=== PATIENT | female | born 1955 | race Caucasian/White ===

== ENCOUNTER 2020-02-09 21:27 | Emergency (ER) | payer OTHER ==
--- OUTSIDE RECORDS SUMMARY | 2020-02-09 21:30 | XMS REPORT | Clinical Summary ---
:1955 Author Organization [facility] Address [address] [place] [address] Care Team Providers Name Role Phone Priscilla Tubbs Primary Care Provider Allergies Not on File Medications Not on file Active Problems Not on file Social History Tobacco Use Types Packs/Day Years Used Date Never Assessed Sex Assigned at Date Recorded Not on file Job Start Date Occupation Industry Not on file Not on file Not on file Travel History Travel Start Travel End No recent travel history available. 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
--- OUTSIDE RECORDS SUMMARY | 2020-02-09 21:30 | XMS REPORT | Continuity of Care Document ---
:1955 Author Organization [facility] t Address [address] [place] [address] [address] [place] [address] Care Team Providers Name Role Phone Arley LEW Primary Care Physician Kirill HARRELL S Attending Clinician Problems This patient has no known problems. Allergies, Adverse Reactions, Alerts This patient has no known allergies or adverse reactions. Social History Social Habit Start Date Stop Date Quantity Comments Source Sex Assigned At Rosalioraina sterling Mandaen Medications This patient has no known medications. Procedures This patient has no known procedures. Plan of Care Planned Activity Planned Date Details Comments Source Future Scheduled 2020-02-15 IN[facility]ZA VACCINE [facility] M[facility]en Test 00:00:00 [code = INFLUENZA VACCINE] Future Scheduled 2018 65+ PNEUMOCOCCAL [place] Mandaen Test 00:00:00 VACCINE (1 of 2 - PCV13) [code = 65+ PNEUMOCOCCAL VACCINE (1 of 2 - PCV13)] Future Scheduled 2003-10-04 BREAST CANCER [facility]ist Test 00:00:00 SCREENING [code = BREAST CANCER SCREENING] Future Scheduled 2003-10-04 COLONOSCOPY SCREENING [facility] Mandaen Test 00:00:00 [code = COLONOSCOPY SCREENING] Future Scheduled 2003-10-04 SHINGLES VACCINES (#1) [facility] Mandaen Test 00:00:00 [code = SHINGLES VACCINES (#1)] Encounters Start End Encounter Admission Attending Care Care Encounter Source Date/Time Date/Time Type Type Clinicians Facility Department ID 2019-09-17 2019-09-17 Office RICK Roy [id number] 26 14:44:15 15:22:21 Visit [facility] [id number] Surgical [id number] Specialti [phone] [address] Results This patient has no known results.
--- NOTE | 2020-02-10 00:11 | ER ---
Nurse's Notes [facility] Name: Gin Barksdale Age: 64 yrs Sex: Female : 1955 Arrival Date: 02/09/2020 Time: 21:31 Bed 4 Private MD: Diagnosis: Distal Radial Fracture Presentation: 02/08 21:37 Chief complaint: Patient states: Slipped and fell, landed on L arm. [place] on L forearm ca1 and L wrist. Denies LOC. Denies hitting head. Coronavirus screen: Patient denies a cough. Patient denies shortness of breath or difficulty breathing. Patient denies measured and/or subjective temperature greater than 100.4F prior to today's visit. Patient denies travel on a cruise ship or to a country the [facility] currently lists as an affected area. Patient denies contact with known and/or suspected case of COVID-19. Proceed with normal triage. Ebola Screen: Patient negative for fever greater than or equal to 101.5 degrees Fahrenheit, and additional compatible Ebola Virus Disease symptoms Patient denies exposure to infectious person. Patient denies travel to an Ebola-affected area in the 21 days before illness onset. No symptoms or risks identified at this time. Initial Sepsis Screen: Does the patient meet any 2 criteria? No. Patient's initial sepsis screen is negative. Does the patient have a suspected source of infection? No. Patient's initial sepsis screen is negative. Risk Assessment: Do you want to hurt yourself or someone else? Patient reports no desire to harm self or others. Onset of symptoms was February 09, 2020. 21:37 Method Of Arrival: Wheelchair ca1 21:37 Acuity: ELY 4 ca1 22:28 Care prior to arrival: None. Mechanism of Injury: Fall from standing position. Trauma mg2 event details: Injury occurred in the [facility]. Trauma Activation: Not Applicable Physician: ED Physician; Name: ; Notified At: ; Arrived At: Physician: General Surgeon; Name: ; Notified At: ; Arrived At: Physician: Radiology; Name: ; Notified At: ; Arrived At: Physician: Respiratory; Name: ; Notified At: ; Arrived At: Physician: Lab; Name: ; Notified At: ; Arrived At: Historical: - Allergies: 21:41 No Known Allergies; ca1 - Home Meds: 21:41 levothyroxine 75 mcg oral tab [Active]; ca1 - PMHx: 21:41 Thyroid problem; ca1 - PSHx: 21:41 Cholecystectomy; Gastric Bypass; Tubal ligation; ca1 - Immunization history:: Adult Immunizations up to date. - Social history:: Smoking status: Patient denies any tobacco usage or history of. - Immunization history: Last tetanus immunization: unknown. Screenin:26 Abuse screen: Denies threats or abuse. Denies injuries from another. Nutritional mg2 screening: No deficits noted. Tuberculosis screening: No symptoms or risk factors identified. Fall Risk Fall in past 12 months (25 points). Primary Survey: 22:26 NO uncontrolled hemorrhage observed. mg2 22:26 A: The patient is alert. Airway: patent, No supplemental oxygen in use on arrival. mg2 Breathing/Chest: Respiratory pattern: regular, Respiratory effort: spontaneous, unlabored, Breath sounds: clear, Chest inspection: symmetrical rise and fall of the chest. Circulation: Skin color: pink. Disability Alert. Exposure/Environment: All clothing and personal items were removed. Forensic evidence collection is not deemed to be indicated at this time. Items placed in patient belonging bag. There is no evidence of uncontrolled external bleeding. Obvious injury(ies) are noted at this time: swelling in the left forearm A warming method has been applied: A warm blanket has been provided to the patient. Secondary Survey: 22:27 HEENT: No deficits noted. Gastrointestinal: No deficits noted. : No deficits noted. mg2 Musculoskeletal: Circulation, motion, and sensation intact. Capillary refill < 3 seconds. Assessment: 22:25 General: Appears in no apparent distress. comfortable, Behavior is calm, cooperative. mg2 Pain: Complains of pain in left arm Quality of pain is described as aching, Pain began suddenly, Is intermittent. Neuro: Level of Consciousness is awake, alert, obeys commands, Oriented to person, place, time, situation. Cardiovascular: Capillary refill < 3 seconds Patient's skin is warm and dry. Respiratory: Airway is patent Respiratory effort is even, unlabored, Respiratory pattern is regular, symmetrical. GI: No deficits noted. : No signs and/or symptoms were reported regarding the genitourinary system. EENT: No signs and/or symptoms were reported regarding the EENT system. Derm: Skin is intact, is healthy with good turgor, Skin is pink, warm \T\ dry. normal. Musculoskeletal: Circulation, motion, and sensation intact. Capillary refill < 3 seconds, Swelling present in left arm. Injury Description: swelling in the left arm. Vital Signs: 21:37 BP 136 / 93; Pulse 92; Resp 15 S; Temp 97.3(TE); Pulse Ox 100% on R/A; Weight 86.18 kg ca1 (R); Height 5 ft. 4 in. (162.56 cm) (R); Pain 9/10; 22:36 Pulse 75; Resp 18; Pulse Ox 100% on R/A; mg2 21:37 Body Mass Index 32.61 (86.18 kg, 162.56 cm) ca1 [place] Coma Score: 22:36 Eye Response: spontaneous(4). Verbal Response: oriented(5). Motor Response: obeys mg2 commands(6). Total: 15. Trauma Score (Adult): 22:36 Eye Response: spontaneous(1); Verbal Response: oriented(1); Motor Response: obeys mg2 commands(2); Systolic BP: > 89 mm Hg(4); Respiratory Rate: 10 to 29 per min(4); [place] Score: 15; Trauma Score: 12 ED Course: 21:31 Patient arrived in ED. es 21:39 Triage completed. ca1 21:41 Arm band placed on right wrist. ca1 22:02 Wrist Left (3 View) XRAY In Process Unspecified. EDMS 22:02 Forearm Left XRAY In Process Unspecified. EDMS 22:09 Bernard Rodriguez PA is PHCP. [facility] 22:09 Julian Lucio MD is Attending Physician. [facility] 22:25 Steve Lambert, ASHLEY is Primary Nurse. mg2 22:26 Patient did not have IV access during this emergency room visit. mg2 22:28 Patient has correct armband on for positive identification. mg2 22:29 Patient maintains SpO2 saturation greater than 95% on room air. Thermoregulation: warm mg2 blanket given to patient. 02/09 00:10 James Gamez MD is Referral Physician. [facility] Administered Medications: 02/08 23:22 Drug: [place] 10 mg-325 mg 1 tabs Route: PO; mg2 02/09 00:16 Follow up: Response: No adverse reaction mg2 Intake: 02/08 22: PO: 0ml; Total: 0ml. mg2 Outcome: 02/09 00:11 Discharge ordered by MD. bonner 00:32 Patient left the ED. jd3 Signatures: Dispatcher [employer] Bernard Bello PA PA jmm Salyer, Edna es Davies, Jonathon, RN RN jd3 Steve Lambert RN RN mg2 Jannie Pena RN RN ca1
--- NOTE | 2020-02-10 00:12 | EDPHYS ---
Physician Documentation [facility] Name: Gin Barksdale Age: 64 yrs Sex: Female : 1955 Arrival Date: 02/09/2020 Time: 21:31 Bed 4 Private MD: ED Physician Julian Lucio HPI: 02/08 21:42 This 64 yrs old Female presents to ER via Wheelchair with complaints of Fall jmm Injury, Arm Pain, Possible broken arm. 21:42 Details of fall: The patient fell from an upright position. Onset: The symptoms/episode jmm began/occurred acutely, just prior to arrival. Associated injuries: The patient sustained left wrist. This is a 64 year old female with a history of hypothyroidism that presents to the ED with complaints of left wrist pain beginning after a fall which occurred just prior to arrival. Denies other injury. . Historical: - Allergies: 21:41 No Known Allergies; ca1 - Home Meds: 21:41 levothyroxine 75 mcg oral tab [Active]; ca1 - PMHx: 21:41 Thyroid problem; ca1 - PSHx: 21:41 Cholecystectomy; Gastric Bypass; Tubal ligation; ca1 - Immunization history:: Adult Immunizations up to date. - Social history:: Smoking status: Patient denies any tobacco usage or history of. - Immunization history: Last tetanus immunization: unknown. ROS: 21:42 Constitutional: Negative for fever, chills, and weight loss, Cardiovascular: Negative jmm for chest pain, palpitations, and edema, Respiratory: Negative for shortness of breath, cough, wheezing, and pleuritic chest pain. 21:42 MS/extremity: Positive for injury or acute deformity, pain. 21:42 All other systems are negative. Exam: 21:42 Constitutional: This is a well developed, well nourished patient who is awake, alert, jmm and in no acute distress. Head/Face: atraumatic. Eyes: EOMI, no conjunctival erythema appreciated ENT: Moist Mucus Membranes Neck: Trachea midline, Supple Chest/axilla: Normal chest wall appearance and motion. Cardiovascular: Regular rate and rhythm. No edema appreciated Respiratory: Normal respirations, no respiratory distress appreciated Abdomen/GI: Non distended, soft Back: Normal ROM Skin: General appearance color normal 21:42 Musculoskeletal/extremity: swelling noted to the left wrist, radial and ulnar side ttp, full radial pulse, compartments are soft, NVI. 21:42 Skin: Appearance: Color: normal in color. 21:42 Neuro: Orientation: is normal, Mentation: is normal, Memory: is normal. 21:42 Psych: Behavior/mood is pleasant, cooperative. Vital Signs: 21:37 BP 136 / 93; Pulse 92; Resp 15 S; Temp 97.3(TE); Pulse Ox 100% on R/A; Weight 86.18 kg ca1 (R); Height 5 ft. 4 in. (162.56 cm) (R); Pain 9/10; 22:36 Pulse 75; Resp 18; Pulse Ox 100% on R/A; mg2 21:37 Body Mass Index 32.61 (86.18 kg, 162.56 cm) ca1 [place] Coma Score: 22:36 Eye Response: spontaneous(4). Verbal Response: oriented(5). Motor Response: obeys mg2 commands(6). Total: 15. Trauma Score (Adult): 22:36 Eye Response: spontaneous(1); Verbal Response: oriented(1); Motor Response: obeys mg2 commands(2); Systolic BP: > 89 mm Hg(4); Respiratory Rate: 10 to 29 per min(4); [place] Score: 15; Trauma Score: 12 Procedures: 02/09 00:09 Splinting: Splint applied to left arm using sling, sugar tong. applied by tech. ha Examined by me, post splint application: neurovascular intact, 2+ distal pulses palpable, brisk capillary refill noted, Patient tolerated well. MDM: 02/08 22:50 Patient medically screened. ha 02/09 00:09 Data reviewed: vital signs, nurses notes. Counseling: I had a detailed discussion with ha the patient and/or guardian regarding: the historical points, exam findings, and any diagnostic results supporting the discharge/admit diagnosis, radiology results, the need for outpatient follow up, to return to the emergency department if symptoms worsen or persist or if there are any questions or concerns that arise at home. ED course: Patient advised to follow up with ortho for reevaluation. Patient understood and agrees with the plan of care. Compartment syndrome return precautions given. . 02/08 21:42 Order name: Wrist Left (3 View) XRAY ca1 02/08 21:42 Order name: Forearm Left XRAY ca1 02/08 23:15 Order name: Sugar Tong Forearm Splint; Complete Time: 00:25 ha Administered Medications: 02/08 23:22 Drug: [place] 10 mg-325 mg 1 tabs Route: PO; mg2 02/09 00:16 Follow up: Response: No adverse reaction mg2 Disposition: 06:07 Co-signature as Attending Physician, Julian Lucio MD I agree with the assessment and tw4 plan of care. Disposition: 02/10/20 00:11 Discharged to Home. Impression: Distal Radial Fracture. - Condition is Stable. - Discharge Instructions: Radial Fracture. - Prescriptions for Tylenol- Codeine #3 300-30 mg Oral Tablet - take 1 tablet by ORAL route every 6 hours As needed; 20 tablet. - Medication Reconciliation Form, Thank You Letter, Antibiotic Education, Prescription Opioid Use form. - Follow up: James Gamez MD; When: 2 - 3 days; Reason: Recheck today's complaints, Continuance of care, Re-evaluation by your physician. Signatures: Dispatcher [employer] EDMS Bernard Rodriguez PA PA jmm Davies, Jonathon, RN RN jd3 Julian Lucio MD MD tw4 Steve Lambert RN RN mg2 Jannie Pena RN RN ca1 Corrections: (The following items were deleted from the chart) 00:32 00:11 02/10/2020 00:11 Discharged to Home. Impression: Distal Radial Fracture. jd3 Condition is Stable. Forms are Medication Reconciliation Form, Thank You Letter, Antibiotic Education, Prescription Opioid Use. Follow up: Dr. James Gamez; When: 2 - 3 days; Reason: Recheck today's complaints, Continuance of care, Re-evaluation by your physician. ha
[2020-02-10 00:42] VITALS: BP 136/93; TEMP 97.3; O2SAT 100
--- NOTE | 2020-02-10 08:10 | RAD REPORT ---
EXAM DESCRIPTION: RAD - Wrist Left 3 View - 02/09/2020 10:03 pm CLINICAL HISTORY: Pain;Swelling COMPARISON: No comparisons FINDINGS: Distal left radius fracture is present. There appear to be 2 fracture lines. A more transv ersely oriented fracture is seen in the metaphyseal region. There is buckling of the dorsal cortex. A n additional oblique fracture line appears to traverse through the radial styloid reaching the articu lar surface. Neither fracture show significant distraction or angulation component. Ulna styloid is f ractured with 1-2 mm distraction. Carpal bones maintain normal positioning to the radial articular surface. No carpal bone fracture or acute finding. There is no dislocation or periosteal reaction noted. No foreign body or other soft ti ssue abnormality. No pathologic change. IMPRESSION: Distal left radius and ulna fractures as detailed.
--- NOTE | 2020-02-10 08:12 | RAD REPORT ---
EXAM DESCRIPTION: RAD - Forearm Left - 02/09/2020 10:02 pm CLINICAL HISTORY: Pain;Swelling COMPARISON: Left wrist same date FINDINGS: Distal radius and ulna fractures are present detailed on the left wrist report. Remainder of the forearm shows no fracture or acute bone finding. No elbow joint abnormality seen. No foreign body or other soft tissue abnormality. IMPRESSION: Distal left radius and ulna fractures are present and detailed in the wrist report. Remainder of the left forearm and left elbow joint show no acute findings.
== END 2020-02-10 00:32 | disposition home or self-care (01) ==
LOC: ER 21:27
PROC: 2W3DX1Z Immobilization of Left Lower Arm using Splint (ICD-10-PCS; principal; 2020-02-10)
DX: S52.502A Unspecified fracture of the lower end of left radius, initial encounter for closed fracture (principal); W19.XXXA Unspecified fall, initial encounter; Y93.9 Activity, unspecified; Y92.9 Unspecified place or not applicable; E07.9 Disorder of thyroid, unspecified; Z98.84 Bariatric surgery status
CPT/HCPCS: 99284

== ENCOUNTER 2020-03-22 14:54 | Emergency (ER) | payer OTHER ==
--- OUTSIDE RECORDS SUMMARY | 2020-03-22 14:56 | XMS REPORT ---
:1955 Author Organization [employer] Care Team Providers Name Role Phone James Gamez Provider Role Unavailable Allergies No Known Allergies Problems Problem Type Condition Code Onset Dates Condition Statu s Problem Seasonal allergic rhinitis, J30.2 Active unspecified trigger Medications No Known Medications Results No Known Results Summary Purpose [employer] Submission
--- OUTSIDE RECORDS SUMMARY | 2020-03-22 14:56 | XMS REPORT | Clinical Summary ---
:1955 Author Organization [facility] Address [address] [place] [address] Care Team Providers Name Role Phone Priscilla [...] of 2 - PCV13) 2018 INFLUENZA VACCINE 04/16/2020 Results Not on fileafter 03/22/2019 Advance Directives For more information, please contact: [phone] Type Date Recorded Patient Fraud Analyst Explanati on Advance Directives, Living Will and Medical Power of Horse Shoer
--- OUTSIDE RECORDS SUMMARY | 2020-03-22 14:56 | XMS REPORT ---
:1955 Author Organization [employer] Care Team Providers Name Role Phone James Gamez Provider Role Unavailable Allergies, Adverse Reactions, Alerts Substance Reaction Event Type codeine Info Not Available Non Drug Allergy Problems Problem Type Condition Code Onset Dates Condition Statu s Assessment Pain in joint of left wrist M25.532 Active Problem Seasonal allergic rhinitis, J30.2 Active unspecified trigger Assessment Other closed extra-articular S52.552A Active fracture of distal end of left radius, initial encounter Medications Medication Code Code Instructions Start End Status Dosage System Date Date Levothyroxine [facility] [address]-20 Active not Sodium defined Traphill [facility] 66822214713 5-325 MG Orally Feb 17, Active 1 ta blet every 6 hrs 2019 as needed Raloxifene HCl [facility] [address]-74 Active not defined Results No Known Results Summary Purpose [employer]Works Submission
--- OUTSIDE RECORDS SUMMARY | 2020-03-22 14:56 | XMS REPORT ---
[...] rhinitis, J30.2 Active unspecified trigger Assessment Other extraarticular fracture of S52.552D Active lower end of left radius, subsequent encounter for closed fracture with routine healing Medications Medication Code Code Instructions Start End Status Dosage System Date Date Raloxifene HCl [facility] [address]-48 Active not defined Levothyroxine [facility] [address]-80 Active not Sodium defined [place] [facility] 30670732327 5-325 MG Orally Feb 17, Active 1 ta blet every 6 hrs 2019 as needed Results No Known Results Summary Purpose eClinicalWorks Submission
--- OUTSIDE RECORDS SUMMARY | 2020-03-22 14:56 | XMS REPORT | Continuity of Care Document ---
:1955 Author Organization [facility] t Address [address] [place] [address] Care Team Providers Name Role Phone Arley LEW Primary Care Physician Kirill HARRELL S Attending Clinician Problems Condition Condition Condition Status Onset Resolution Last Treating Co mments Source Name Details Category Date Date Treatment Clinician Date Seasonal Seasonal Problem [facility] - rh[facility], rhinitis, Alvaro rola unspecifie unspecifie l d trigger d trigger Outp ati ent Clinics Pain in Pain in Diagnosis Active [facility] - left wrist left wrist [facility] Other Other Diagnosis Active [facility] extraartic extraartic [place] [facility] - ular ular [facility] fracture fracture l of lower of lower Outpat i end of end of ent left left Clinics radius, radius, subsequent subsequent encounter encounter for closed for closed fracture fracture with with routine routine healing healing Allergies, Adverse Reactions, Alerts Allergy Allergy Status Severity Reaction(s) Onset Inactive Treating Comm ents Source Name Type Date Date Clinician codeine Adverse Active Info Not [facility] Reaction Available [facility] Social History Social Habit Start Date Stop Date Quantity Comments Source Sex Assigned At Rosalio Rodriguez Medications Ordered Filled Start Stop Current Ordering Indication Dosage Frequency Signature Comments Components Source Medication Medication Date Date Medication? Clinician (SIG) Name Name Lamar Melendezco 2019-0 Yes James [address] [facility] 8-04 Gamez as needed [facility] Levothyroxi Levothyroxi Yes James not [facility] ne Sodium ne Sodium Gamez defined [place] [facility] - [facility] ent Clinics Raloxifene Raloxifene Yes James not [facility] HCl HCl Gamez defined [facility] Clinics Procedures This patient has no known procedures. Plan of Care Planned Activity Planned Date Details Comments Source Future Scheduled 2020-04-16 INFLUENZA VACCINE [place] [facility] 00:00:00 [code = INFLUENZA VACCINE] Future Scheduled 2018 65+ PNEUMOCOCCAL [place] [facility] 00:00:00 VACCINE (1 of 2 - PCV13) [code = 65+ PNEUMOCOCCAL VACCINE (1 of 2 - PCV13)] Future Scheduled 2003-10-04 BREAST CANCER [facility] Test 00:00:00 SCREENING [code = BREAST CANCER SCREENING] Future Scheduled 2003-10-04 COLONOSCOPY SCREENING [facility] Test 00:00:00 [code = COLONOSCOPY SCREENING] Future Scheduled 2003-10-04 SHINGLES VACCINES (#1) [facility] [facility] 00:00:00 [code = SHINGLES VACCINES (#1)] Encounters Start End Encounter Admission Attending Care Care Encounter Source Date/Time Date/Time Type Type Clinicians Facility Department ID 2020-03-03 2020-03-03 Outpatient Jono Pederson [id number] [facility] 14:30[facility] 14[facility]30[facility] 2020-02-18 2020-02-18 Outpatient Jono Pederson [id number] [facility] 11:56:00 11:56:00 [facility] 2020-02-18 2020-02-18 Outpatient Jono Pederson [id number] [facility] 11:00[facility]00 11:00[facility] 2019-09-17 2019-09-17 Office RICK Roy [id number] 26 14:44:15 15:22:21 Visit [facility] [id number] Surgical [id number] [facility] [phone] [address] Results This patient has no known results.
[2020-03-22] MEDS ORDERED: NA CHLORIDE 0.9% 1,000 ML ONE (15:37)
[2020-03-22] MEDS ORDERED: KETOROLAC 30 MG/ML INJ ONE (15:37)
[2020-03-22] MEDS ORDERED: METOCLOPRAMIDE 10 MG/2mL INJ ONE (15:37)
[2020-03-22] MEDS ORDERED: DIPHENHYDRAMINE 50 MG/ML VIAL ONE (15:37)
--- NOTE | 2020-03-22 16:04 | RAD REPORT ---
EXAM DESCRIPTION: CT - Head Brain Wo Cont - 03/22/2020 3:52 pm CLINICAL HISTORY: headache COMPARISON: None TECHNIQUE: Computed axial tomography of the head was obtained. IV contrast was not requested. All CT scans are performed using dose optimization technique as appropriate and may include automated exposure control or mA/KV adjustment according to patient size. FINDINGS: An intracranial bleed is not seen . The ventricles are normal in caliber. No extra-axial fluid collection is noted. Fluid within the sinuses/ mastoids is not seen. IMPRESSION: No acute intracranial abnormality is seen. If patient's symptoms persist MRI of the bra in would be recommended.
--- NOTE | 2020-03-22 16:10 | EDPHYS ---
Physician Documentation [facility] Name: Gin Barksdale Age: 64 yrs Sex: Female : 1955 Arrival Date: 03/22/2020 Time: 14:56 Bed 13 Private MD: ED Physician Indiana Fernandez HPI: 03/22 15:55 This 64 yrs old Female presents to ER via Ambulatory with complaints of pm1 Headache > 24hrs Old. 15:55 The patient complains of pain to the left side of head, at forehead and occiput. The pm1 patient describes the headache as aching. Onset: The symptoms/episode began/occurred 4 day(s) ago. Associated signs and symptoms: Pertinent negatives: dizziness, fever, neck stiffness, rash, vision changes, weakness. Severity of symptoms: in the emergency department the pain is unchanged. Headache History: Denies prior headaches. The patient has not experienced similar symptoms in the past. Historical: - Allergies: 15:20 Codeine; bp - Home Meds: 15:20 levothyroxine 75 mcg tab [Active]; bp - PMHx: 15:20 Thyroid problem; bp - Immunization history:: Adult Immunizations up to date. - Social history:: Smoking status: Patient denies any tobacco usage or history of. ROS: 15:55 Constitutional: Negative for fever, chills, and weight loss, Neck: Negative for injury, pm1 pain, and swelling, Cardiovascular: Negative for chest pain, palpitations, and edema, Respiratory: Negative for shortness of breath, cough, wheezing, and pleuritic chest pain, Abdomen/GI: Negative for abdominal pain, nausea, vomiting, diarrhea, and constipation, Back: Negative for injury and pain, MS/Extremity: Negative for injury and deformity, Skin: Negative for injury, rash, and discoloration. 15:55 Neuro: Positive for headache, Negative for dizziness, numbness, tingling, weakness. Exam: 15:55 Constitutional: This is a well developed, well nourished patient who is awake, alert, pm1 and in no acute distress. Neck: Trachea midline, no thyromegaly or masses palpated, and no cervical lymphadenopathy. Supple, full range of motion without nuchal rigidity, or vertebral point tenderness. No Meningismus. Chest/axilla: Normal chest wall appearance and motion. Nontender with no deformity. No lesions are appreciated. Cardiovascular: Regular rate and rhythm with a normal S1 and S2. No gallops, murmurs, or rubs. Normal PMI, no JVD. No pulse deficits. Respiratory: Lungs have equal breath sounds bilaterally, clear to auscultation and percussion. No rales, rhonchi or wheezes noted. No increased work of breathing, no retractions or nasal flaring. Back: No spinal tenderness. No costovertebral tenderness. Full range of motion. Skin: Warm, dry with normal turgor. Normal color with no rashes, no lesions, and no evidence of cellulitis. MS/ Extremity: Pulses equal, no cyanosis. Neurovascular intact. Full, normal range of motion. 15:55 Head/face: Noted is no obvious of injury or deformity except tenderness, that is mild, of the left side of forehead and left base of the skull. 15:55 Abdomen/GI: Exam negative for acute changes, Inspection: abdomen appears normal, Palpation: abdomen is soft and non-tender, in all quadrants. 15:55 Neuro: Orientation: is normal, Mentation: is normal, Motor: is normal, moves all fours. Vital Signs: 15:18 BP 131 / 73; Pulse 78; Resp 16; Temp 98; Pulse Ox 100% ; Weight 90.72 kg; Height 5 ft. bp 4 in. (162.56 cm); 15:30 BP 131 / 74; Pulse 77; Resp 16; Pulse Ox 100% ; bp 16:49 BP 125 / 88; Pulse 78; Resp 16; Temp 98; Pulse Ox 100% ; bp 15:18 Body Mass Index 34.33 (90.72 kg, 162.56 cm) bp MDM: 15:13 Patient medically screened. pm1 15:58 Data reviewed: vital signs. Data interpreted: Pulse oximetry: on room air is 100 %. pm1 Interpretation: normal. 16:08 Counseling: I had a detailed discussion with the patient and/or guardian regarding: the pm1 historical points, exam findings, and any diagnostic results supporting the discharge/admit diagnosis, radiology results, the need for outpatient follow up, to return to the emergency department if symptoms worsen or persist or if there are any questions or concerns that arise at home. 16:08 ED course: Pain is 0/10 with medications given in the ER. Patient is happy and ready to pm1 go home. 03/22 15:15 Order name: CT Head Brain wo Cont; Complete Time: 16:04 pm1 03/22 15:15 Order name: IV Saline Lock; Complete Time: 15:36 pm1 Administered Medications: 15:30 Drug: TORadol - Ketorolac 15 mg Route: IVP; Site: right forearm; bp 16:51 Follow up: Response: No adverse reaction; Marked relief of symptoms bp 15:30 Drug: Reglan 10 mg Route: IVP; Site: right forearm; bp 16:51 Follow up: Response: Marked relief of symptoms bp 15:30 Drug: Benadryl 12.5 mg Route: IVP; Site: right forearm; bp 16:51 Follow up: Response: No adverse reaction; Marked relief of symptoms bp 15:30 Drug: NS 0.9% 1000 ml Route: IV; Rate: 1000 ml; Site: right forearm; bp 16:51 Follow up: IV Status: Completed infusion; IV Intake: 1000ml bp Disposition: 03/23 08:34 Co-signature as Attending Physician, Indiana Fernandez MD. ma2 Disposition: 03/22/20 16:09 Discharged to Home. Impression: Headache. - Condition is Stable. - Discharge Instructions: General Headache Without Cause, Tension Headache, Adult. - Prescriptions for Fiorinal 50- 325-40 mg Oral Capsule - take 1 capsule by ORAL route every 4 hours As needed - not to exceed 6 capsules per day; 20 capsule. - Medication Reconciliation Form, Thank You Letter, Antibiotic Education, Prescription Opioid Use form. - Follow up: Emergency Department; When: As needed; Reason: Worsening of condition. Follow up: Private Physician; When: 2 - 3 days; Reason: Recheck today's complaints, Continuance of care, Re-evaluation by your physician. - Problem is new. - Symptoms have improved. Signatures: Dispatcher [employer] Steve Rolle, TOMMY ELECT[employer]INUITY TESTER pm1 Pritesh Stahl RN RN Indiana Rhodes MD MD ma2 Corrections: (The following items were deleted from the chart) 03/22 17:01 16:09 03/22/2020 16:09 Discharged to Home. Impression: Headache. Condition is Stable. bp Forms are Medication Reconciliation Form, Thank You Letter, Antibiotic Education, Prescription Opioid Use. Follow up: Emergency Department; When: As needed; Reason: Worsening of condition. Follow up: Private Physician; When: 2 - 3 days; Reason: Recheck today's complaints, Continuance of care, Re-evaluation by your physician. Problem is new. Symptoms have improved. pm1
--- NOTE | 2020-03-22 16:10 | ER ---
Nurse's Notes [facility] Name: Gin Barksdale Age: 64 yrs Sex: Female : 1955 Arrival Date: 03/22/2020 Time: 14:56 Bed 13 Private MD: Diagnosis: Headache Presentation: 03/22 15:18 Chief complaint: Patient states: HEADACHE x4 DAYS. Coronavirus screen: At this time, bp the client does not indicate any symptoms associated with coronavirus-19. Ebola Screen: No symptoms or risks identified at this time. Initial Sepsis Screen: Does the patient meet any 2 criteria? No. Patient's initial sepsis screen is negative. Does the patient have a suspected source of infection? No. Patient's initial sepsis screen is negative. Risk Assessment: Do you want to hurt yourself or someone else? Patient reports no desire to harm self or others. Onset of symptoms is unknown. 15:18 Method Of Arrival: Ambulatory bp 15:18 Acuity: ELY 4 bp Triage Assessment: 15:20 Headache History: The patient has had previous headaches and this one is similar to bp previous episodes. General: Appears in no apparent distress. comfortable, Behavior is cooperative, appropriate for age, anxious. Pain: Complains of pain in head Pain currently is 7 out of 10 on a pain scale. Pain began 2-3 days ago. Also complains of no other associated symptoms. EENT: No deficits noted. Neuro: Level of Consciousness is awake, alert, obeys commands, Oriented to person, place, time, situation, Appropriate for age. Cardiovascular: No deficits noted. Respiratory: No deficits noted. GI: No signs and/or symptoms were reported involving the gastrointestinal system. : No signs and/or symptoms were reported regarding the genitourinary system. Derm: No deficits noted. Musculoskeletal: No deficits noted. Historical: - Allergies: 15:20 Codeine; bp - Home Meds: 15:20 levothyroxine 75 mcg tab [Active]; bp - PMHx: 15:20 Thyroid problem; bp - Immunization history:: Adult Immunizations up to date. - Social history:: Smoking status: Patient denies any tobacco usage or history of. Screenin:22 Abuse screen: Denies threats or abuse. Denies injuries from another. Nutritional bp screening: No deficits noted. Tuberculosis screening: No symptoms or risk factors identified. Fall Risk None identified. Assessment: 15:22 General: SEE TRIAGE NOTE. Pain: Complains of pain in head. bp 16:52 Reassessment: PT D/C HOME AMBULATORY, DX WITH HEADACHE. bp Vital Signs: 15:18 BP 131 / 73; Pulse 78; Resp 16; Temp 98; Pulse Ox 100% ; Weight 90.72 kg; Height 5 ft. bp 4 in. (162.56 cm); 15:30 BP 131 / 74; Pulse 77; Resp 16; Pulse Ox 100% ; bp 16:49 BP 125 / 88; Pulse 78; Resp 16; Temp 98; Pulse Ox 100% ; bp 15:18 Body Mass Index 34.33 (90.72 kg, 162.56 cm) bp ED Course: 14:56 Patient arrived in ED. ag5 15:06 Steve Sloan NP is PHCP. pm1 15:06 Indiana Fernandez MD is Attending Physician. pm1 15:10 Pritesh Stahl, ASHLEY is Primary Nurse. bp 15:19 Triage completed. bp 15:20 Arm band placed on. bp 15:22 Patient has correct armband on for positive identification. Bed in low position. Call bp light in reach. Side rails up X2. 15:30 Inserted saline lock: 22 gauge in right forearm, using aseptic technique. bp 15:52 CT Head Brain wo Cont In Process Unspecified. EDMS 16:52 No provider procedures requiring assistance completed. IV discontinued, intact, bp bleeding controlled, No redness/swelling at site. Pressure dressing applied. Administered Medications: 15:30 Drug: TORadol - Ketorolac 15 mg Route: IVP; Site: right forearm; bp 16:51 Follow up: Response: No adverse reaction; Marked relief of symptoms bp 15:30 Drug: Reglan 10 mg Route: IVP; Site: right forearm; bp 16:51 Follow up: Response: Marked relief of symptoms bp 15:30 Drug: Benadryl 12.5 mg Route: IVP; Site: right forearm; bp 16:51 Follow up: Response: No adverse reaction; Marked relief of symptoms bp 15:30 Drug: NS 0.9% 1000 ml Route: IV; Rate: 1000 ml; Site: right forearm; bp 16:51 Follow up: IV Status: Completed infusion; IV Intake: 1000ml bp Intake: 16:51 IV: 1000ml; Total: 1000ml. bp Outcome: 16:09 Discharge ordered by . pm1 16:52 Discharged to home ambulatory. bp 16:52 Condition: stable 16:52 Discharge instructions given to patient, Instructed on discharge instructions, follow up and referral plans. medication usage, Demonstrated understanding of instructions, follow-up care, medications, Prescriptions given X 1. 17:01 Patient left the ED. bp Signatures: Dispatcher [employer] EDSteve Olivo NP FIXED WING PILOT pm1 Pritesh Stahl, RN RN bp Jessica Don ag5
[2020-03-23 14:01] VITALS: TEMP 98; O2SAT 100
[2020-03-23 14:04] VITALS: BP 125/88
== END 2020-03-22 17:01 | disposition home or self-care (01) ==
LOC: ER 14:54
DX: R51 Headache (principal); E07.9 Disorder of thyroid, unspecified; Z88.5 Allergy status to narcotic agent
CPT/HCPCS: 96361; 70450; 96375; 96374; 99284; J2765; J1200; J7030

== ENCOUNTER 2020-09-07 10:01 | Day surgery (SDC) | payer OTHER ==
[2020-08-26 15:10] LABS: Absolute Lymphocytes (CBC) 1.8 K/uL (0.7-4.9); Basophils % 0.8 % (0-1.3); Hematocrit 33.7 % (36.0-45.0); Lymphocytes % 26.9 % (15.3-44.8); MPV 9.9 fL (7.6-11.3); RBC Red Blood Cell Count 4.19 M/uL (3.86-4.86)
[2020-08-26 15:13] LABS: Protime INR 1.15
[2020-08-26 15:16] LABS: BUN Blood Urea Nitrogen 11 mg/dL (7-18); Bicarbonate 28 mmol/L (21-32); Glucose Level 93 mg/dL (74-106); Potassium 3.9 mmol/L (3.5-5.1); Sodium Level 142 mmol/L (136-145)
[2020-09-07] MEDS ORDERED: NA CHLORIDE 0.9% 500 ML ONE (10:57)
[2020-09-07] MEDS ORDERED: ATROPINE SULF 1 MG/10 ML SYR IV ONE (11:20)
[2020-09-07] MEDS ORDERED: MIDAZOLAM HCL 5 ML ONE (11:20)
--- NOTE | 2020-09-07 11:25 | RAD REPORT ---
EXAM DESCRIPTION: RAD - Chest Single View - 09/07/2020 10:44 am CLINICAL HISTORY: pre op Chest pain. COMPARISON: Chest Pa And Lat (2 Views) dated 08/16/2016 FINDINGS: Portable technique limits examination quality. The lungs are grossly clear. The heart is normal in size. No displaced fractures.Small hiatal hernia. IMPRESSION: No acute intrathoracic process suspected.
[2020-09-07] MEDS ORDERED: FLUMAZENIL 0.1 MG/ML (5 mL VIAL) IV ONE (11:51)
--- NOTE | 2020-09-07 12:57 | OP ---
Date of Procedure: 09/07/2020 Surgeon: VIC ZARAGOZA Procedure Performed: Synchronized electrocardioversion into normal sinus rhythm. Diagnosis: Atrial fibrillation. Description Of Procedure: After risks, benefits, alternatives were explained, the patient agreed to the procedure and signed informed consent. She was brought into the cardiac catheterization laborato and rhythm strips were obtained. The patient was in atrial fibrillation. She has been taking Jonelle kaitlin for the past 6 weeks without interruption. Then 5 mg of Versed were given. The patient was sed ated very well and then a synchronized electrocardioversion was done using 200 joules and successfull y converted the patient to sinus rhythm. The patient woke up after that and she is moving all her ex tremities. No signs of stroke. Impression: Successful synchronized electrocardioversion into sinus rhythm. Plan: Discharge home once criteria met and followup with me in the office in 4 weeks. The patient w as instructed to continue Eliquis. SR/MODL Voice ID: [id number] Report ID: [id number]
[2020-09-07 13:16] VITALS: BP 126/63; TEMP 96.4; O2SAT 100
--- NOTE | 2020-09-09 00:03 | EKG ---
Test Date: 2020-09-07 Test Time: 11:45:38 Wet Inspector Optical Glass: CECILY MEASUREMENT RESULTS: Intervals: Rate: 65 KY: 172 QRSD: 90 QT: 430 QTc: 447 Kelliher: P: 23 KY: 172 QRS: 62 T: 36 INTERPRETIVE STATEMENTS: Sinus rhythm with marked sinus arrhythmia Otherwise normal ECG Compared to ECG 08/26/2020 14:40:06 Atrial fibrillation no longer present Electronically Signed On 09-08-20 23:58:50 METAL MACHINIST by Ajit Dobbins
== END 2020-09-07 12:55 | disposition home or self-care (01) ==
LOC: CCL 10:01
PROVIDERS: ATTEND Internal Medicine
DX: I48.91 Unspecified atrial fibrillation (principal); I10 Essential (primary) hypertension; E03.9 Hypothyroidism, unspecified; Z88.6 Allergy status to analgesic agent; Z20.822 Contact with and (suspected) exposure to COVID-19
CPT/HCPCS: 93005 ×2; 85025; 80048; 36415; 85610; 85730; 71045; 92960; U0002; J2250; J7040

== ENCOUNTER 2024-05-19 04:03 | Emergency (ER) | payer OTHER ==
[2024-05-19] MEDS ORDERED: KETOROLAC 30 MG/ML INJ ONE (05:27)
[2024-05-19] MEDS ORDERED: NA CHLORIDE 0.9% 1,000 ML ONE (05:28)
[2024-05-19] MEDS ORDERED: DIPHENHYDRAMINE 50 MG/ML VIAL ONE (05:28)
[2024-05-19] MEDS ORDERED: FENTANYL CITR 100 MCG/2 ML ONE (05:28)
[2024-05-19] MEDS ORDERED: METOCLOPRAMIDE 10 MG/2mL INJ ONE (05:51)
[2024-05-19 06:03] LABS: Absolute Basophils 0.1 K/uL (0-0.5); Absolute Eosinophils 0.1 K/uL (0-0.5); Absolute Lymphocytes (CBC) 1.6 K/uL (0.7-4.9); Absolute Monocytes 0.4 K/uL (0.1-1.3); Absolute Neutrophil 2.7 K/uL (1.8-8.0); Basophils % 1.2 % (0-1.3); Eosinophils % 1.8 % (0-4.4); Hemoglobin 12.2 g/dL (12.0-15.0); MCH 31.4 pg (27.0-35.0); MPV 10.3 fL (7.6-11.3); Monocytes % 9.1 % (3.3-12.3); Neutrophils % 55.9 % (41.7-73.7); Nucleated Red Blood Cells % 0.1 % (0-0); Platelets 200 thou/uL (152-406); Red Cell Distribution Width 12.9 % (12.1-15.2)
--- NOTE | 2024-05-19 06:03 | RAD REPORT ---
EXAM DESCRIPTION: CT of the head without contrast CLINICAL HISTORY: HEADACHE COMPARISON: 03/22/2020 TECHNIQUE: Axial CT of the head obtained from the skull apex to the skull base without contrast. This exam was performed according to our departmental dose-optimization program, which includes automated exposure control, adjustment of the mA and/or kV according to patient size and/or use of it erative reconstruction technique. FINDINGS: No acute intracranial hemorrhage identified. No mass, mass effect, shift of the midline, abnormal ext ra-axial fluid collection or CT evidence of acute ischemic change identified. The ventricular system and sulcal spaces are age appropriate. Scattered areas of hypodensity throughout the suprate ntorial white matter are nonspecific and may be related to chronic small vessel ischemic change. The visualized paranasal sinuses and the mastoids are clear. No skull fracture identified. Visualiz ed orbits and globes are unremarkable. Atherosclerotic calcification of the intracranial internal carotid arteries. IMPRESSION: 1. No acute intracranial abnormality by CT criteria. Electronically signed by: Kevin Spear DO 05/19/2024 06:00 AM [facility] [id number] Due to temporary technical issues with the PACS/Vacatia reporting system, reports are being abdirashid d by the in-house radiologist without review as a courtesy to ensure prompt reporting the interpreting radiologist is fully responsible for the content of the report. Transcribed Date/Time: 05/19/2024 6:02 AM
[2024-05-19 06:09] LABS: Specific Gravity 1.023 (1.005-1.030); Sqamous Epithelial <5 /HPF (None Seen); Urine Bacteria None Seen /HPF (<20); Urine Bilirubin NEGATIVE (Negative); Urine Blood Negative (Negative); Urine Clarity Clear (Clear); Urine Color Light-Yellow (Yellow); Urine Culture Reflex Order NOT NEEDED; Urine Glucose NEGATIVE (Negative); Urine Ketones NEGATIVE (Negative); Urine Microscopic Reflex YN ORDER UMIC; Urine Mucus Slight /HPF (None Seen); Urine Nitrite NEGATIVE (Negative); Urine Protein NEGATIVE (Negative); Urine RBC <5 /HPF (None Seen); Urine Urobilinogen Normal (Normal); Urine WBC <5 /HPF (<5); Urine pH 5.5 (5.0-7.0)
[2024-05-19 06:22] LABS: ALT/SGPT 18 U/L (13-56); AST/SGOT 15 U/L (15-37); Albumin 3.2 g/dL (3.4-5.0); Albumin/Globulin Ratio 0.9 (1.1-1.8); Alkaline Phosphatase 68 U/L (45-117); Anion Gap 7.9 mEq/L (5.0-15.0); BUN Blood Urea Nitrogen 16 mg/dL (7-18); Bicarbonate 29 mEq/L (21-32); Bilirubin Total 0.4 mg/dL (0.2-1.0); Globulin 3.5 g/dL (2.3-3.5); Glomerular Filtration Rate 95 ml/min (=/>90); Glucose Level 98 mg/dL (74-106); Potassium 3.9 mEq/L (3.5-5.1); Protein, Total 6.7 g/dL (6.4-8.2); Sodium Level 141 mEq/L (136-145)
[2024-05-19 06:23] LABS: C-Reactive Protein < 2.90 mg/L (<3.00)
[2024-05-19] MEDS ORDERED: CEFTRIAXONE 1000 MG/VIAL ONE (06:29)
--- NOTE | 2024-05-19 06:59 | EDPHYS ---
Physician Documentation [facility] Name: Gin Barksdale Age: 68 yrs Sex: Female : 1955 Arrival Date: 05/19/2024 Time: 04:03 Bed 5 Private MD: ED Physician Jose Raul Robles HPI: 05/19 05:03 This 68 yrs old Female presents to ER via Ambulatory with complaints of lupe Headache. 05:03 The patient complains of pain to the forehead and left baptism. The patient describes lupe the headache as aching, waxing and waning. Onset: The symptoms/episode began/occurred 3 day(s) ago. Associated signs and symptoms: Pertinent positives: nausea, HEADACHE. Severity of symptoms: At its worst the pain was moderate, in the emergency department the pain is unchanged. Headache History: Denies prior headaches. The symptoms are alleviated by nothing. the symptoms are aggravated by nothing. The patient has not experienced similar symptoms in the past. Historical: - Allergies: 04:21 Codeine; ha1 - Home Meds: 04:21 levothyroxine 75 mcg tab [Active]; ha1 - PMHx: 04:21 Thyroid problem; Atrial fibrillation; Hypertensive disorder; ha1 - Immunization history:: Adult Immunizations up to date. - Infectious Disease History:: Denies. - Social history:: Smoking status: Patient denies any tobacco usage or history of. ROS: 05:06 Constitutional: Negative for fever, chills, and weight loss, Eyes: Negative for injury, lupe pain, redness, and discharge, ENT: Negative for injury, pain, and discharge, Neck: Negative for injury, pain, and swelling, Cardiovascular: Negative for chest pain, palpitations, and edema, Respiratory: Negative for shortness of breath, cough, wheezing, and pleuritic chest pain, Abdomen/GI: Negative for abdominal pain, nausea, vomiting, diarrhea, and constipation, Back: Negative for injury and pain, : Negative for injury, bleeding, discharge, and swelling, MS/Extremity: Negative for injury and deformity, Skin: Negative for injury, rash, and discoloration, Psych: Negative for depression, anxiety, suicide ideation, homicidal ideation, and hallucinations, Allergy/Immunology: Negative for hives, rash, and allergies, Endocrine: Negative for neck swelling, polydipsia, polyuria, polyphagia, and marked weight changes, Hematologic/Lymphatic: Negative for swollen nodes, abnormal bleeding, and unusual bruising, 05:06 Neuro: Positive for headache, of the left baptism and forehead, Exam: 05:06 Constitutional: This is a well developed, well nourished patient who is awake, alert, lupe and in no acute distress. Eyes: Pupils equal round and reactive to light, extra-ocular motions intact. Lids and lashes normal. Conjunctiva and sclera are non-icteric and not injected. Cornea within normal limits. Periorbital areas with no swelling, redness, or edema. ENT: Nares patent. No nasal discharge, no septal abnormalities noted. Tympanic membranes are normal and external auditory canals are clear. Oropharynx with no redness, swelling, or masses, exudates, or evidence of obstruction, uvula midline. Mucous membranes moist. Neck: Trachea midline, no thyromegaly or masses palpated, and no cervical lymphadenopathy. Supple, full range of motion without nuchal rigidity, or vertebral point tenderness. No Meningismus. Chest/axilla: Normal chest wall appearance and motion. Nontender with no deformity. No lesions are appreciated. Cardiovascular: Regular rate and rhythm with a normal S1 and S2. No gallops, murmurs, or rubs. Normal PMI, no JVD. No pulse deficits. Respiratory: Lungs have equal breath sounds bilaterally, clear to auscultation and percussion. No rales, rhonchi or wheezes noted. No increased work of breathing, no retractions or nasal flaring. Abdomen/GI: Soft, non-tender, with normal bowel sounds. No distension or tympany. No guarding or rebound. No evidence of tenderness throughout. Back: No spinal tenderness. No costovertebral tenderness. Full range of motion. Skin: Warm, dry with normal turgor. Normal color with no rashes, no lesions, and no evidence of cellulitis. MS/ Extremity: Pulses equal, no cyanosis. Neurovascular intact. Full, normal range of motion. Neuro: Awake and alert, GCS 15, oriented to person, place, time, and situation. Cranial nerves II-XII grossly intact. Motor strength 5/5 in all extremities. Sensory grossly intact. Cerebellar exam normal. Normal gait. Psych: Awake, alert, with orientation to person, place and time. Behavior, mood, and affect are within normal limits. 05:06 Neck: ROM/movement: limited range of motion, is not appreciated, Meningeal signs: are not present, Kernig's sign is negative, Brudzinski's sign is negative, nuchal rigidity, is not appreciated, Vital Signs: 04:07 BP 139 / 79; Pulse 75; Resp 17 S; Temp 97.8(O); Pulse Ox 99% on R/A; Weight 76.66 kg; ha1 Height 5 ft. 4 in. ; Pain 8/10; 05:40 BP 127 / 75; Pulse 71; Resp 17; Pulse Ox 100% on 2 lpm NC; jj7 06:36 BP 120 / 72; Pulse 74; Resp 17; Pulse Ox 99% on 2 lpm NC; Pain 0/10; jj7 04:07 Body Mass Index 29.01 (76.66 kg, 162.56 cm) ha1 04:07 Pain Scale: Adult ha1 06:36 Pain Scale: Adult j Lukasz Coma Score: 05:11 Eye Response: spontaneous(4). Motor Response: obeys commands(6). Verbal Response: lupe oriented(5). Total: 15. MDM: 04:22 Medical Screening Exam initiated lupe 05:11 Data reviewed: vital signs, nurses notes, lab test result(s), radiologic studies, CT lupe scan. Consideration of Admission/Observation Escalation of care including admission/observation considered. I considered the following discharge prescriptions or medication management in the emergency department Medications were administered in the Emergency Department. See MAR. Independent interpretation of the following test(s) in the Emergency Department CT Scan: My interpretation is CT HEAD WO. Historians other than the Patient: PT WELL INFORMED. Care significantly affected by the following chronic conditions: Hypertension, A FIB, THYROID PROBLEM. 05/19 05:00 Order name: CBC with Diff; Complete Time: 06:23 [facility] 05/19 05:00 Order name: Comprehensive Metabolic Panel; Complete Time: 06:58 lupe 05/19 05:00 Order name: CRP; Complete Time: 06:58 [facility] 05/19 05:01 Order name: Urinalysis w/ reflexes; Complete Time: 06:23 lupe 05/19 05:01 Order name: CT Head Brain wo Cont [facility] 05/19 05:00 Order name: Oxygen; Complete Time: 05:57 lupe Administered Medications: 05:49 Drug: diphenhydrAMINE IVP 37.5 mg IVP once Route: IVP; Site: right antecubital; jj7 06:35 Follow up: Response: Marked relief of symptoms; Pain is decreased j7 05:49 Drug: fentaNYL (PF) IVP 25 mcg IVP once Route: IVP; Site: right antecubital; jj7 06:36 Follow up: Response: Marked relief of symptoms; Pain is decreased j7 05:50 Drug: NS 0.9% IV 1000 ml IV at 125 ml/hr continuous Route: IV; Rate: 125 ml/hr; Site: [facility] right antecubital; 07:05 Follow up: IV Status: Completed infusion; IV Intake: 500ml j7 05:50 Drug: Ketorolac IVP 15 mg IVP once Route: IVP; Site: right antecubital; jj7 06:36 Follow up: Response: Marked relief of symptoms; Pain is decreased j7 05:57 Drug: metoCLOPramide IVP 10 mg IVP once; over 1 to 2 minutes Route: IVP; Site: right [facility] antecubital; 06:35 Follow up: Response: Marked relief of symptoms; Nausea is decreased j7 06:34 Drug: Rocephin IV 1 grams IV at per protocol once; Given slow IV push per pharmacy jj7 instructions Route: IV; Rate: per protocol; Site: right antecubital; 06:36 Follow up: IV Status: Completed infusion jj7 Disposition Summary: 05/19/24 06:58 Discharge Ordered Notes: Location: Home lupe Problem: new lupe Symptoms: have improved lupe Condition: Stable lupe Diagnosis - Headache lupe - UTI/ Urinary tract infection, site not specified lupe Followup: lupe - With: Private Physician - When: 2 - 3 days - Reason: Recheck today's complaints, Continuance of care, Re-evaluation by your physician Followup: lupe - With: Arley Spencer MD - When: 2 - 3 days - Reason: Recheck today's complaints, Re-evaluation by your physician Discharge Instructions: - Discharge Summary Sheet lupe - General Headache Without Cause lupe - Urinary Tract Infection, Adult lupe - Urinary Tract Infection, Adult, [id number] lupe - General Headache Without Cause, [id number] lupe Forms: - Medication Reconciliation Form lupe - Antibiotic Education lupe - Prescription Opioid Use lupe - Patient Portal Instructions [facility] - Leadership Thank You Letter [facility] Prescriptions: - Fioricet 50-300-40 mg Oral capsule - take 1 capsule ORAL route 4 times per day as needed for pain; 20 capsule; lupe Refills: 0, Product Selection Permitted - ondansetron 4 mg Oral Tablet,disintegrating - take 1 tablet ORAL route every 8 hours PRN NAUSEA; 20 tablet; Refills: 0, [facility] Product Selection Permitted - Cipro 250 mg Oral tablet - take 1 tablet ORAL route every 12 hours; 14 tablet; Refills: 0, Product [facility] Selection Permitted Signatures: Dispatcher [employer] Jose Raul Dukes MD MD cha Ayala, Heidy, RN RN ha1 Claritza Badillo RN RN jj7 Corrections: (The following items were deleted from the chart) 05:01 05:01 Head Brain Wo [id number].RAD.BRZ ordered. EDVA ROBERTOMS
--- NOTE | 2024-05-19 06:59 | ER ---
Nurse's Notes [facility] Name: Gin Barksdale Age: 68 yrs Sex: Female : 1955 Arrival Date: 05/19/2024 Time: 04:03 Bed 5 Private MD: Diagnosis: Headache;UTI/ Urinary tract infection, site not specified Presentation: 05/19 04:07 Chief complaint: Patient states: HEADACHE FOR THE PAST THREE DAYS SYMPTOMS NOT ha1 IMPROVING WITH OTC MEDICATION. 04:07 Coronavirus screen: Vaccine status: Patient reports being unvaccinated. Ebola Screen: ha1 No symptoms or risks identified at this time. Initial Sepsis Screen: Does the patient meet any 2 criteria? No. Patient's initial sepsis screen is negative. Does the patient have a suspected source of infection? No. Patient's initial sepsis screen is negative. Risk Assessment: Do you want to hurt yourself or someone else? Patient reports no desire to harm self or others. Onset of symptoms was May 19, 2024. 04:07 Method Of Arrival: Ambulatory ha1 04:07 Acuity: ELY 3 ha1 Historical: - Allergies: 04:21 Codeine; ha1 - Home Meds: 04:21 levothyroxine 75 mcg tab [Active]; ha1 - PMHx: 04:21 Thyroid problem; Atrial fibrillation; Hypertensive disorder; ha1 - Immunization history:: Adult Immunizations up to date. - Infectious Disease History:: Denies. - Social history:: Smoking status: Patient denies any tobacco usage or history of. Screenin:40 [facility] ED Fall Risk Assessment (Adult) History of falling in the last 3 months, jj7 including since admission No falls in past 3 months (0 pts) Confusion or Disorientation No (0 pts) Intoxicated or Sedated No (0 pts) Impaired Gait No (0 pts) Mobility Assist Device Used No (0 pt) Altered Elimination No (0 pt) Score/Fall Risk Level 0 - 2 = Low Risk Oriented to surroundings, Maintained a safe environment, Educated pt \T\ family on fall prevention, incl call for assistance when getting out of bed, Assessed \T\ reinforced patient's understanding of fall precautions. Abuse screen: Denies threats or abuse. Nutritional screening: No deficits noted. Tuberculosis screening: No symptoms or risk factors identified. Assessment: 05:40 General: Appears in no apparent distress. comfortable, Behavior is calm, cooperative, jj7 appropriate for age. Pain: Complains of pain in left alevism. Neuro: Reports headache in left. GI: Reports nausea. Vital Signs: 04:07 BP 139 / 79; Pulse 75; Resp 17 S; Temp 97.8(O); Pulse Ox 99% on R/A; Weight 76.66 kg; ha1 Height 5 ft. 4 in. ; Pain 8/10; 05:40 BP 127 / 75; Pulse 71; Resp 17; Pulse Ox 100% on 2 lpm NC; jj7 06:36 BP 120 / 72; Pulse 74; Resp 17; Pulse Ox 99% on 2 lpm NC; Pain 0/10; jj7 04:07 Body Mass Index 29.01 (76.66 kg, 162.56 cm) ha1 04:07 Pain Scale: Adult ha1 06:36 Pain Scale: Adult jj7 Lukasz Coma Score: 05:11 Eye Response: spontaneous(4). Motor Response: obeys commands(6). Verbal Response: lupe oriented(5). Total: 15. ED Course: 04:05 Patient arrived in ED. jj6 04:21 Triage completed. ha1 04:22 Joes Raul Robles MD is Attending Physician. lupe 04:44 Claritza Badillo RN is Primary Nurse. jj7 05:25 CT Head Brain wo Cont In Process Unspecified. EDMS 05:40 Inserted saline lock: 20 gauge in right antecubital area, using aseptic technique. jj7 Blood collected. Flushed with 10 mL NS. Oxygen administration via nasal cannula \T\ 2L/min. 05:40 Patient has correct armband on for positive identification. Bed in low position. Call jj7 light in reach. Side rails up X 1. Provided Education on: USE OD CALL CHACON. Door closed. Lights dimmed. Warm blanket given. 05:49 Urinalysis w/ reflexes Sent. jj7 05:50 CRP Sent. jj7 05:50 Comprehensive Metabolic Panel Sent. jj7 05:50 CBC with Diff Sent. jj7 06:58 Arley Spencer MD is Referral Physician. lupe 07:04 No provider procedures requiring assistance completed. IV discontinued, intact, jj7 bleeding controlled, No redness/swelling at site. Pressure dressing applied. Administered Medications: 05:49 Drug: diphenhydrAMINE IVP 37.5 mg IVP once Route: IVP; Site: right antecubital; jj7 06:35 Follow up: Response: Marked relief of symptoms; Pain is decreased jj7 05:49 Drug: fentaNYL (PF) IVP 25 mcg IVP once Route: IVP; Site: right antecubital; jj7 06:36 Follow up: Response: Marked relief of symptoms; Pain is decreased jj7 05:50 Drug: NS 0.9% IV 1000 ml IV at 125 ml/hr continuous Route: IV; Rate: 125 ml/hr; Site: [facility] right antecubital; 07:05 Follow up: IV Status: Completed infusion; IV Intake: 500ml jj7 05:50 Drug: Ketorolac IVP 15 mg IVP once Route: IVP; Site: right antecubital; jj7 06:36 Follow up: Response: Marked relief of symptoms; Pain is decreased jj7 05:57 Drug: metoCLOPramide IVP 10 mg IVP once; over 1 to 2 minutes Route: IVP; Site: right [facility] antecubital; 06:35 Follow up: Response: Marked relief of symptoms; Nausea is decreased jj7 06:34 Drug: Rocephin IV 1 grams IV at per protocol once; Given slow IV push per pharmacy jj7 instructions Route: IV; Rate: per protocol; Site: right antecubital; 06:36 Follow up: IV Status: Completed infusion jj7 Medication: 05:40 VIS not applicable for this client. jj7 Intake: 07:05 IV: 500ml; Total: 500ml. jj7 Outcome: 06:58 Discharge ordered by MD. andrade 07:04 Discharged to home ambulatory, jj7 07:04 Condition: improved 07:04 Discharge instructions given to patient, Instructed on discharge instructions, medication usage, Demonstrated understanding of instructions, medications, Prescriptions given X 3, 07:06 Patient left the ED. jj7 Signatures: Dispatcher [employer] EDIA Jose Raul Robles MD MD cha Jeffries, Jennifer jj6 Jaimee Mann RN RN ha1 Claritza Badillo RN RN jj7 Corrections: (The following items were deleted from the chart) 07:06 07:04 Discharge instructions given to patient, Instructed on discharge instructions, jj7 medication usage, Demonstrated understanding of instructions, medications, jj7
[2024-05-19 07:10] VITALS: TEMP 97.8
[2024-05-19 07:12] VITALS: BP 120/72; O2SAT 99
== END 2024-05-19 07:06 | disposition home or self-care (01) ==
LOC: ER 04:03
DX: N39.0 Urinary tract infection, site not specified (principal); I10 Essential (primary) hypertension; E07.9 Disorder of thyroid, unspecified; I48.91 Unspecified atrial fibrillation
CPT/HCPCS: 96361; 85025; 81001; 36415; 80053; 86140; 70450; 96375; 96374; 99285; J2765; J1200; J3010; J7030; J0696